=== PATIENT | male | born 1950 | race Caucasian/White ===

== ENCOUNTER 2024-04-20 11:05 | Day surgery (SDC) | payer MEDICARE ==
[~2024-04-20] VITALS: Ht 172.7 cm; Wt 80.0 kg
[~2024-04-20 11:05] MED LIST: ATOR80 PO; Balanced Salt Epinephrine Irrigation Solution 500 mL IR SCH; FISH1000 PO; FLAX PO; Garlic1 EACH PO; Lidocaine HCl/Pf 1% 5 ML VIAL XX SCH; Moxifloxacin HCL 0.5 MG/0.1 ML 0.4MLSYR LEFTEYE SCH; PHENYLEPHRINE\\TROPICAMIDE\\TETRACAINE OPHTHALMIC DILATING SOLN LEFTEYE PRN; Povidone-Iodine 450 DROP/30 ML Solution LEFTEYE SCH; Triamcinolone Inj Susp 40 MG / ML 1ML Vial INJ SCH; Triamcinolone Inj Susp 40 MG / ML 1ML Vial ONE; [UNRECOGNIZED DRUG - OTHER]
[2024-04-20] MEDS ORDERED: CRANBERRY SUPPLEMENT (11:37)
[2024-04-20] MEDS ORDERED: Midazolam HCl 1MG / ML 2ML Vial ONE ×2 (12:17→12:25)
[2024-04-20] MEDS ORDERED: Tetracaine HCl 0.5% Opth Soln 15 ml XX ONE (12:19)
[2024-04-20 13:30] VITALS: BP 129/74
== END 2024-04-20 13:15 | disposition home or self-care (01) ==
LOC: ORSCSDS 11:05
PROVIDERS: Ophthalmology
PROC: 08RJ3JZ Replacement of Right Lens with Synthetic Substitute, Percutaneous Approach (ICD-10-PCS; principal; 2024-04-20 12:30)
DX: H25.813 Combined forms of age-related cataract, bilateral (principal); H52.201 Unspecified astigmatism, right eye; E78.00 Pure hypercholesterolemia, unspecified; Z79.899 Other long term (current) drug therapy
CPT/HCPCS: J2250; J3301; V2632

== ENCOUNTER 2024-04-27 11:02 | Day surgery (SDC) | payer MEDICARE ==
[~2024-04-27] VITALS: Ht 172.7 cm; Wt 79.2 kg
[~2024-04-27 11:02] MED LIST changes: +CRANBERRY SUPPLEMENT
[2024-04-27] MEDS ORDERED: Midazolam HCl 1MG / ML 2ML Vial ONE (12:28)
[2024-04-27] MEDS ORDERED: Tetracaine HCl 0.5% Opth Soln 15 ml XX ONE (12:30)
[2024-04-27 13:23] VITALS: BP 133/68
== END 2024-04-27 13:15 | disposition home or self-care (01) ==
LOC: ORSCSDS 11:02
PROVIDERS: Ophthalmology
PROC: 08RK3JZ Replacement of Left Lens with Synthetic Substitute, Percutaneous Approach (ICD-10-PCS; principal; 2024-04-27 12:30)
DX: H25.812 Combined forms of age-related cataract, left eye (principal); H52.202 Unspecified astigmatism, left eye; Z96.1 Presence of intraocular lens; E78.5 Hyperlipidemia, unspecified; Z79.899 Other long term (current) drug therapy
CPT/HCPCS: J2250; J3301; V2632